=== PATIENT | female | born 1950 | race Caucasian/White ===

== ENCOUNTER 2023-07-23 10:27 | Day surgery (SDC) | payer MEDICARE ==
[2023-07-22 17:05] LABS: BASOPHILS % (AUTO) 0.7 % (0-1); EOSINOPHILS # (AUTO) 0.2 X10'3 (0-0.9); EOSINOPHILS % (AUTO) 2.5 % (0-6); HEMATOCRIT 40.5 % (35.0-45.0); HEMOGLOBIN 12.9 g/dl (12.0-16.0); LYMPHOCYTES # (AUTO) 1.7 X10'3 (1.1-4.8); LYMPHOCYTES % (AUTO) 26.6 % (21-51); MEAN CORPUSCULAR HEMOGLOBIN 26.6 PG (27.0-31.0); MEAN CORPUSCULAR HGB CONC 31.9 g/dL (33.0-36.5); MEAN CORPUSCULAR VOLUME 83.2 FL (78-98); MEAN PLATELET VOLUME 8.9 FL (7.4-10.4); MONOCYTES # (AUTO) 0.5 X10'3 (0-0.9); MONOCYTES % (AUTO) 8.4 % (2-12); NEUTROPHILS % (AUTO) 61.8 % (42-75); PLATELET COUNT 274 X10'3 (140-440); RED BLOOD COUNT 4.86 X10'6 (4.20-5.60); WHITE BLOOD COUNT 6.5 X10'3 (4.5-11.0)
[2023-07-22 17:11] LABS: ALBUMIN 3.6 G/DL (3.4-5.0); ANION GAP 11 (8-16); BLOOD UREA NITROGEN 15 MG/DL (7-18); BUN/CREATININE RATIO 14.7 (10.0-20.0); CALCIUM 8.4 MG/DL (8.5-10.1); CHLORIDE 105 MMOL/L (99-107); CREATININE 1.02 MG/DL (0.40-0.90); GLUCOSE 166 MG/DL (70-104); POTASSIUM 3.9 MMOL/L (3.5-5.1); SODIUM 142 MMOL/L (135-145); TOTAL CARBON DIOXIDE 26.3 MMOL/L (24-32); eGFR 53 ML/MIN
[2023-07-22 17:56] LABS: APTT 30 SECONDS (22-32); PROTHROMBIN TIME 10.3 SECONDS (9.0-12.0)
[~2023-07-23] VITALS: Ht 157.5 cm; Wt 90.9 kg
[2023-07-23] VITALS (10 sets, daily range): BP systolic 98–144; BP diastolic 56–92; PULSE 97–119; RESP 16; TEMP 98; O2SAT 91–97
[2023-07-23] MEDS ORDERED: diphenhydrAMINE 25mg capsule PO PRN (10:45)
[2023-07-23] MEDS ORDERED: LORazepam 0.5 MG tablet PO PRN (10:45)
[2023-07-23] MEDS ORDERED: normal saline 1,000 ML IV SCH (10:45)
[2023-07-23] MEDS ORDERED: midazolam 1 mg/ML 2ml injection ONE (12:17)
[2023-07-23] MEDS ORDERED: verapamil 2.5 mg/ml inj IV ONE (12:17)
[2023-07-23] MEDS ORDERED: LIDOcaine 1% (10mg/ml) 2ml vial ONE (12:17)
[2023-07-23] MEDS ORDERED: iohexol 350MG/ML 100ml bottle IV ONE (12:18)
[2023-07-23] MEDS ORDERED: nitroGLYCERIN 500mcg/5mL D5W 5 ML IV ONE (12:18)
[2023-07-23] MEDS ORDERED: iohexol 350 MG/ML 50ML vial IV ONE (12:18)
[2023-07-23] MEDS ORDERED: heparin 1,000unit/ml 10ml vial 10 ML ONE (12:18)
[2023-07-23] MEDS ORDERED: fentaNYL/PF 50MCG/1 ML 2ML syringe ONE (12:18)
[2023-07-23] MEDS ORDERED: ISOS60TA71 PO (12:21)
[2023-07-23] MEDS ORDERED: VILA40TA PO (12:21)
[2023-07-23] MEDS ORDERED: AMLO2.5T2 PO (12:21)
[2023-07-23] MEDS ORDERED: AMA1T PO (12:21)
[2023-07-23] MEDS ORDERED: LOSA-415 PO (12:21)
[2023-07-23] MEDS ORDERED: NALO0.4D3 IM (12:21)
[2023-07-23] MEDS ORDERED: ESOM20CA PO (12:21)
[2023-07-23] MEDS ORDERED: ZOLE5INF7 IV (12:21)
[2023-07-23] MEDS ORDERED: normal saline 1000ml 1,000 ML IV SCH (14:45)
== END 2023-07-23 18:00 | disposition home or self-care (01) ==
LOC: SSTAY O 10:27
PROVIDERS: ATTEND Internal Medicine Cardiovascular Disease
DX: I35.0 Nonrheumatic aortic (valve) stenosis (principal); I25.10 Atherosclerotic heart disease of native coronary artery without angina pectoris; E11.9 Type 2 diabetes mellitus without complications; F41.9 Anxiety disorder, unspecified; F32.A Depression, unspecified; K21.9 Gastro-esophageal reflux disease without esophagitis; I10 Essential (primary) hypertension; G47.30 Sleep apnea, unspecified; Z90.710 Acquired absence of both cervix and uterus; Z98.890 Other specified postprocedural states; Z79.84 Long term (current) use of oral hypoglycemic drugs; Z79.899 Other long term (current) drug therapy; Z88.2 Allergy status to sulfonamides; Z88.8 Allergy status to other drugs, medicaments and biological substances; Z79.01 Long term (current) use of anticoagulants; Z84.1 Family history of disorders of kidney and ureter; Z82.49 Family history of ischemic heart disease and other diseases of the circulatory system
CPT/HCPCS: 36415; 76937; 80048; 82948; 85025; 85610; 85730; 93005; 93460; 99152; 99153; J1644; J2250; J3010; J3490; J7030; Q9967; A6258; A6402; C1725; C1751; C1769; C1894

== ENCOUNTER 2024-04-13 11:27 | Outpatient (CLI) | payer MEDICARE ==
[~2024-04-13 11:27] MED LIST: AMLO2.5T2 PO; ESOM20CA PO; GLIM1TAB57 PO; IODIXANOL 320 MG/ML INFUS..BTL 100ML IV ONE; ISOS60TA71 PO; LOSA-415 PO; NALO0.4D3 IM; VILA40TA PO; ZOLE5INF7 IV
[2024-04-13 12:25] LABS: BASOPHILS % (AUTO) 0.6 % (0-1); EOSINOPHILS # (AUTO) 0.1 X10'3 (0-0.9); EOSINOPHILS % (AUTO) 1.6 % (0-6); HEMATOCRIT 35.8 % (35.0-45.0); HEMOGLOBIN 11.5 g/dl (12.0-16.0); LYMPHOCYTES # (AUTO) 1.2 X10'3 (1.1-4.8); LYMPHOCYTES % (AUTO) 18.3 % (21-51); MEAN CORPUSCULAR HGB CONC 32.1 g/dL (33.0-36.5); MEAN PLATELET VOLUME 7.7 FL (7.4-10.4); MONOCYTES # (AUTO) 0.4 X10'3 (0-0.9); MONOCYTES % (AUTO) 6.5 % (2-12); NEUTROPHILS # (AUTO) 4.9 X10'3 (1.8-7.7); PLATELET COUNT 299 X10'3 (140-440); RED BLOOD COUNT 4.27 X10'6 (4.20-5.60); WHITE BLOOD COUNT 6.6 X10'3 (4.5-11.0)
[2024-04-13 12:33] LABS: APTT 28 SECONDS (22-32); PROTHROMBIN TIME 10.3 SECONDS (9.0-12.0)
[2024-04-13 12:37] LABS: ALANINE AMINOTRANSFERASE 15 U/L (12-78); ALBUMIN 3.9 G/DL (3.4-5.0); ALBUMIN/GLOBULIN RATIO 0.9 (1.1-1.5); ALKALINE PHOSPHATASE 66 IU/L (46-116); ANION GAP 11 (8-16); ASPARTATE AMINO TRANSFERASE 17 U/L (10-37); BILIRUBIN,TOTAL 0.8 MG/DL (0.1-1.0); BLOOD UREA NITROGEN 13 MG/DL (7-18); BUN/CREATININE RATIO 10.9 (10.0-20.0); CALCIUM 9.3 MG/DL (8.5-10.1); CHLORIDE 105 MMOL/L (99-107); CREATININE 1.19 MG/DL (0.40-0.90); GLUCOSE 101 MG/DL (70-104); POTASSIUM 3.8 MMOL/L (3.5-5.1); SODIUM 142 MMOL/L (135-145); TOTAL CARBON DIOXIDE 25.6 MMOL/L (24-32); TOTAL PROTEIN 8.2 G/DL (6.4-8.2); eGFR 45 ML/MIN
[2024-04-13 12:47] LABS: PRO BRAIN NATRIURETIC PEPTIDE 175 PG/ML (0-125)
[2024-04-13] MEDS ORDERED: diltiazem 30mg tablet PO ONE ×2 (14:05→14:15)
[2024-04-13] MEDS: diltiazem 5mg/ml 5ml inj. IV ONE ×2 (14:44→15:31)
[2024-04-13 15:31] VITALS: BP 128/51; PULSE 92
== END 2024-04-13 23:59 | disposition home or self-care (01) ==
LOC: RAD 11:27
PROVIDERS: ATTEND Internal Medicine Cardiovascular Disease
DX: Z01.818 Encounter for other preprocedural examination (principal); I35.0 Nonrheumatic aortic (valve) stenosis; R06.02 Shortness of breath; I65.29 Occlusion and stenosis of unspecified carotid artery; I27.0 Primary pulmonary hypertension; I77.89 Other specified disorders of arteries and arterioles; I65.22 Occlusion and stenosis of left carotid artery
CPT/HCPCS: 36415; 71046; 71275; 74174; 75572; 80053; 83880; 85025; 85610; 85730; 93880; J3490; Q9967

== ENCOUNTER 2024-11-11 14:11 | Outpatient (CLI) | payer MEDICARE ==
[~2024-11-11] VITALS: Ht 152.9 cm; Wt 88.0 kg
[~2024-11-11 14:11] MED LIST changes: +AMI200T PO; +AMIO200T67 PO; -AMLO2.5T2 PO; +ASPI81TA53 PO; +HYDR-3972 PO; -IODIXANOL 320 MG/ML INFUS..BTL 100ML IV ONE; -ISOS60TA71 PO; +METO-395 PO; -NALO0.4D3 IM; +NALTREXONE HCL PO; +ROSU10TA72 PO; -ZOLE5INF7 IV
[2024-11-11 14:48] LABS: TOTAL HEMOGLOBIN 8.8 G/dl (12.0-16.0)
[2024-11-11] MEDS: albuterol 2.5 MG/3 ML nebule NEB ONE (15:22)
[2024-11-11 15:35] VITALS: PULSE 89; RESP 18; O2SAT 98
[2024-11-11 15:50] VITALS: PULSE 84; RESP 16
--- NOTE | 2024-11-12 15:27 | PROCEDURE NOTE - Respiratory ---
Procedure Note-Respiratory Providers to Copies To 1: LADI KEMP MD Procedure Name: This is a complete pulmonary function study dated November 11, 2024. Hemoglobin measurement was done as part of the study. Spirometry measurements: There is mild reduction in both the forced vital capacity and the FEV1. The FEV1 ratio is very slightly reduced as well. Some of the flow rates are reduced. After inhaled bronchodilator was administered, some of the flow rates show slight improvement. Spirometry documents mild obstructive ventilatory defect with slight reversibility using bronchodilator. Lung volume measurements: All of the major lung volume determinations are in the normal range. There is no evidence for restrictive lung disease. Lung diffusion measurement: The DLCO measurement is significantly reduced. It is noted that the patient shows significant anemia with hemoglobin at 8.8 grams/deciliter. Part of the reduced DLCO measurement can be explained on the basis of the anemia. Airway resistance measurement: The airway resistance is normal. Overall conclusion: This study is abnormal. There is evidence for mild obstructive ventilatory defect. The patient shows improvement with inhaled bronchodilator. These findings suggest a diagnosis of mild asthma. There was also a reduction in the DLCO measurement but this possibly could be explained on the basis of the patient's anemia. We have previous studies for comparison dated August of this year. Over the past three months the FEV1 remained stable and the forced vital capacity also remained stable. A trial of inhaled bronchodilator might prove to be useful for this patient. Should this patient remain on amiodarone, we recommend follow-up pulmonary function testing in approximately one year. The patient's symptoms of shortness of breath with exertion can be partly explained on the basis of the patient's anemia. WENCESLAO MERCADO MD Nov 12, 2024 15:27
== END 2024-11-11 23:59 | disposition home or self-care (01) ==
LOC: RT 14:11
PROVIDERS: ATTEND Internal Medicine Cardiovascular Disease
DX: R06.02 Shortness of breath (principal); R06.09 Other forms of dyspnea
CPT/HCPCS: 85018; 94060; 94727; 94729; 94760